=== PATIENT | female | born 1990 | race Caucasian/White ===

== ENCOUNTER 2017-11-26 08:00 | Outpatient (CLI) | payer BC | END 2017-11-26 08:01 | disposition home or self-care (01) | LOC: BICULT 08:00 | PROVIDERS: ATTEND Nurse Practitioner Women's Health | DX: T83.32XA Displacement of intrauterine contraceptive device, initial encounter (principal); N83.01 Follicular cyst of right ovary | CPT/HCPCS: 76856 ==